=== PATIENT | female | born 1995 | race Caucasian/White ===

== ENCOUNTER 2018-01-10 11:21 | Inpatient (IN) | payer OTHER ==
[2018-01-10 11:41] VITALS: BMI 34.2
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
[2018-01-10] MEDS ORDERED: MAG HYDROX/AL HYDROX/SIMETH 30 ML UNIT-DOSE CUP PO PRN (12:31)
[2018-01-10] MEDS ORDERED: MENTHOL/PHENOL 1 EACH UD MM PRN (12:31)
[2018-01-10] MEDS ORDERED: ACETAMINOPHEN 325 MG TABLET (FP) PO PRN (12:31)
[2018-01-10] MEDS ORDERED: MAGNESIUM CITRATE 300 ML BOTTLE PO PRN (12:31)
[2018-01-10] MEDS ORDERED: P-EPHED 60MG/TRIPROLIDI 2.5MG TABLET PO PRN (12:31)
[2018-01-10] MEDS ORDERED: guaiFENesin/D-METHORPHAN HB 10 ML UNIT-DOSE CUPS PO PRN (12:31)
[2018-01-10] MEDS ORDERED: IBUPROFEN 400 MG TABLET (FP) PO PRN (12:31)
[2018-01-10] MEDS ORDERED: MAGNESIUM HYDROX 2400MG/30ML ORAL SUSPENSION 30 ML CUP PO PRN (12:31)
[2018-01-10] MEDS ORDERED: LOPERAMIDE HCL 2 MG CAPSULE PO PRN (12:31)
[2018-01-10] MEDS ORDERED: METHADONE HCL 10 MG TABLET (FOR DETOX USE ONLY) PO ONE ×2 (13:45→23:00)
[2018-01-10] MEDS: CYCLOBENZAPRINE HCL 10 MG TABLET (FP) PO PRN ×2 (17:07→22:20)
[2018-01-10] MEDS: diazePAM 5 MG TABLET PO PRN ×2 (17:08→22:20)
[2018-01-10] MEDS: THIAMINE HCL 100 MG TABLET (FP) PO SCH (22:20)
[2018-01-10] MEDS: MELATONIN 5 MG TABLETS PO PRN (22:21)
[2018-01-11] MEDS ORDERED: METHADONE HCL 10 MG TABLET (FOR DETOX USE ONLY) PO ONE (10:00)
[2018-01-11 10:20] LABS: HEMATOCRIT 41.2 % (32.4-45.2); HEMOGLOBIN 14.1 GM/dL (10.7-15.3); MCH 29.9 pg (25.7-33.7); MCHC 34.3 g/dl (32.0-36.0); MEAN CELL VOLUME 87.2 fl (80-96); MEAN PLT VOLUME 8.5 fl (7.5-11.1); PLATELET COUNT 373 K/MM3 (134-434); RBC 4.72 M/mm3 (3.60-5.2); RDW 12.6 % (11.6-15.6); WHITE BLOOD COUNT 8.9 K/mm3 (4.0-10.0)
[2018-01-11 10:25] LABS: ALBUMIN 3.7 g/dl (3.4-5.0); ALK PHOS 75 U/L (45-117); ANION GAP 9 MMOL/L (8-16); BILIRUBIN,TOTAL 0.3 mg/dL (0.2-1); BLOOD UREA NITROGEN 13 mg/dL (7-18); CALCIUM 9.6 mg/dL (8.5-10.1); CHLORIDE 108 mmol/L (98-107); CO2 26 mmol/L (21-32); CREATININE 0.7 mg/dL (0.55-1.3); GLUCOSE,RANDOM 89 mg/dL (74-106); POTASSIUM 4.1 mmol/L (3.5-5.1); SGOT/AST 10 U/L (15-37); SGPT/ALT 13 U/L (13-61); SODIUM 143 mmol/L (136-145); TOT PROT 7.6 g/dl (6.4-8.2)
[2018-01-11] MEDS: PRENATAL VITAMINS W/ FOLIC ACID TABLET (FP) PO SCH (10:36)
--- NOTE | 2018-01-11 12:26 | EKG ---
Test Reason : Blood Pressure : / mmHG Vent. Rate : 061 BPM Atrial Rate : 061 BPM P-R Int : 124 ms QRS Dur : 084 ms QT Int : 414 ms P-R-T Axes : 020 001 -13 degrees QTc Int : 416 ms SINUS RHYTHM WITH OCCASIONAL PREMATURE VENTRICULAR COMPLEXES T WAVE ABNORMALITY, CONSIDER INFERIOR ISCHEMIA ABNORMAL ECG NO PREVIOUS ECGS AVAILABLE Confirmed by MALGORZATA STUBBS MD ([id number]) on 01/11/2018 12:26:15 PM Referred By: Confirmed By:MALGORZATA STUBBS MD
--- NOTE | 2018-01-11 14:26 | PN ---
BHS COWS - Scale Resting Pulse: 0= [place] 80 or Below Sweatin= Chills/Flushing Restless Observation: 0= Sits Still Pupil Size: 0= Normal to Room Light Bone or Joint Aches: 2= Severe Diffuse Aches Runny Nose/ Eye Tearin= None GI Upset > 30mins: 0= None Tremor Observation of Outstretched Hands: 0= None Yawning Observation: 2= >3x During Session Anxiety or Irritability: 0= None Goose Flesh Skin: 3=Piloerection COWS Score: 8 BHS Progress Note (SOAP) Subjective: PATIENT C/O BODY ACHES, INTERRUPTED SLEEP AND CHILLS. Objective: 01/11/18 14:25 Laboratory Tests 01/11/18 01/11/18 01/11/18 06:00 06:00 06:00 WBC 8.9 RBC 4.72 Hgb 14.1 Hct 41.2 MCV 87.2 MCH 29.9 MCHC 34.3 RDW 12.6 Plt Count 373 MPV 8.5 Sodium 143 Potassium 4.1 Chloride 108 H Carbon Dioxide 26 Anion Gap 9 BUN 13 Creatinine 0.7 Creat Clearance w eGFR > 60 Random Glucose 89 Calcium 9.6 Total Bilirubin 0.3 AST 10 L ALT 13 Alkaline Phosphatase 75 Total Protein 7.6 Albumin 3.7 RPR Titer Nonreactive Vital Signs Temperature 98.1 F 01/11/18 14:10 Pulse Rate 78 01/11/18 14:10 Respiratory Rate 18 01/11/18 14:10 Blood Pressure 115/57 L 01/11/18 14:10 O2 Sat by Pulse Oximetry (%) PE: SKIN + GOOSEFLESH ALERT AND ORIENTED X 3 AMB AD RAJAT EXT FULL ROM Assessment: 01/11/18 14:26 WITHDRAWAL SX Plan: CONTINUE DETOX ORDERED ENCOURAGE ORAL FLUIDS CONTINUE TO MONITOR CLINICALLY
[2018-01-11 15:18] LABS: URINE APPEARANCE SLCLOUDY; URINE BILIRUBIN NEGATIVE (<2.0 mg/dL); URINE COLOR YELLOW; URINE GLUCOSE (UA) NEGATIVE (NEGATIVE); URINE KETONE NEGATIVE (NEGATIVE); URINE LEUK ESTERASE NEGATIVE (NEGATIVE); URINE NITRITE NEGATIVE (NEGATIVE); URINE PROTEIN NEGATIVE (NEGATIVE); URINE UROBILINOGEN NEGATIVE mg/dL (0.2-1.0)
[2018-01-11] MEDS: CYCLOBENZAPRINE HCL 10 MG TABLET (FP) PO PRN (22:33)
[2018-01-11] MEDS: MELATONIN 5 MG TABLETS PO PRN (22:34)
[2018-01-11] MEDS: THIAMINE HCL 100 MG TABLET (FP) PO SCH (22:34)
[2018-01-12] MEDS ORDERED: METHADONE HCL 5 MG TABLET (FOR DETOX USE ONLY) PO ONE (10:00)
[2018-01-12] MEDS: PRENATAL VITAMINS W/ FOLIC ACID TABLET (FP) PO SCH (10:42)
--- NOTE | 2018-01-12 13:27 | PN ---
BHS COWS - Scale Resting Pulse: 0= [place] 80 or Below Sweatin= Chills/Flushing Restless Observation: 1= Difficult to Sit Still Pupil Size: 1= Pupils >than Normal Bone or Joint Aches: 1= Mild Discomfort Runny Nose/ Eye Tearin= Nasal Congestion GI Upset > 30mins: 1= Stomach Cramp Tremor Observation of Outstretched Hands: 1= Tremor [place], Not Seen Yawning Observation: 1= 1-2x During Session Anxiety or Irritability: 1=Feels Anxious/Irritable Goose Flesh Skin: 0=Smooth Skin COWS Score: 9 BHS Progress Note (SOAP) Subjective: body ache joints pain sweat tremor trouble sleep at night Objective: 01/12/18 13:26 Vital Signs Temperature 98.1 F 01/12/18 09:43 Pulse Rate 56 L 01/12/18 09:43 Respiratory Rate 16 01/12/18 09:43 Blood Pressure 98/50 L 01/12/18 09:43 O2 Sat by Pulse Oximetry (%) Laboratory Last Values WBC 8.9 K/mm3 (4.0-10.0) 01/11/18 06:00 RBC 4.72 M/mm3 (3.60-5.2) 01/11/18 06:00 Hgb 14.1 GM/dL (10.7-15.3) 01/11/18 06:00 Hct 41.2 % (32.4-45.2) 01/11/18 06:00 MCV 87.2 fl (80-96) 01/11/18 06:00 MCH 29.9 pg (25.7-33.7) 01/11/18 06:00 MCHC 34.3 g/dl (32.0-36.0) 01/11/18 06:00 RDW 12.6 % (11.6-15.6) 01/11/18 06:00 Plt Count 373 K/MM3 (134-434) 01/11/18 06:00 MPV 8.5 fl (7.5-11.1) 01/11/18 06:00 Sodium 143 mmol/L (136-145) 01/11/18 06:00 Potassium 4.1 mmol/L (3.5-5.1) 01/11/18 06:00 Chloride 108 mmol/L (98-107) H 01/11/18 06:00 Carbon Dioxide 26 mmol/L (21-32) 01/11/18 06:00 Anion Gap 9 MMOL/L (8-16) 01/11/18 06:00 BUN 13 mg/dL (7-18) 01/11/18 06:00 Creatinine 0.7 mg/dL (0.55-1.3) 01/11/18 06:00 Creat Clearance w eGFR > 60 (>60) 01/11/18 06:00 Random Glucose 89 mg/dL (74-106) 01/11/18 06:00 Calcium 9.6 mg/dL (8.5-10.1) 01/11/18 06:00 Total Bilirubin 0.3 mg/dL (0.2-1) 01/11/18 06:00 AST 10 U/L (15-37) L 01/11/18 06:00 ALT 13 U/L (13-61) 01/11/18 06:00 Alkaline Phosphatase 75 U/L (45-117) 01/11/18 06:00 Total Protein 7.6 g/dl (6.4-8.2) 01/11/18 06:00 Albumin 3.7 g/dl (3.4-5.0) 01/11/18 06:00 Urine Color Yellow 01/11/18 09:15 Urine Appearance Slcloudy 01/11/18 09:15 Urine pH 5.0 (5.0-8.0) 01/11/18 09:15 Ur Specific [place] 1.024 (1.010-1.035) 01/11/18 09:15 Urine Protein Negative (NEGATIVE) 01/11/18 09:15 Urine Glucose (UA) Negative (NEGATIVE) 01/11/18 09:15 Urine Ketones Negative (NEGATIVE) 01/11/18 09:15 Urine Blood Negative (NEGATIVE) 01/11/18 09:15 Urine Nitrite Negative (NEGATIVE) 01/11/18 09:15 Urine Bilirubin Negative (<2.0 mg/dL) 01/11/18 09:15 Urine Urobilinogen Negative mg/dL (0.2-1.0) 01/11/18 09:15 Ur Leukocyte Esterase Negative (NEGATIVE) 01/11/18 09:15 RPR Titer Nonreactive (NONREACTIVE) 01/11/18 06:00 lab noted Assessment: 01/12/18 13:27 withdrawal sx Plan: continue detox
[2018-01-12] MEDS: hydrOXYzine PAMOATE 50 MG CAPSULE (FP) PO PRN (14:13)
[2018-01-12] MEDS: diazePAM 5 MG TABLET PO PRN (21:05)
[2018-01-12] MEDS: THIAMINE HCL 100 MG TABLET (FP) PO SCH (22:08)
[2018-01-12] MEDS: MELATONIN 5 MG TABLETS PO PRN (22:09)
[2018-01-13] MEDS ORDERED: METHADONE HCL 5 MG TABLET (FOR DETOX USE ONLY) PO ONE (10:00)
[2018-01-13] MEDS: PRENATAL VITAMINS W/ FOLIC ACID TABLET (FP) PO SCH (10:39)
[2018-01-13] MEDS: CYCLOBENZAPRINE HCL 10 MG TABLET (FP) PO PRN ×2 (10:39→22:18)
[2018-01-13] MEDS: diazePAM 5 MG TABLET PO PRN (10:39)
--- NOTE | 2018-01-13 16:03 | PN ---
BHS Progress Note (SOAP) Subjective: sweat tremor body aches joints pain trouble sleep at night Objective: 01/13/18 16:02 Vital Signs Temperature 99.0 F 01/13/18 13:12 Pulse Rate 114 H 01/13/18 13:12 Respiratory Rate 18 01/13/18 13:12 Blood Pressure 126/84 01/13/18 13:12 O2 Sat by Pulse Oximetry (%) Laboratory Last Values WBC 8.9 K/mm3 (4.0-10.0) 01/11/18 06:00 RBC 4.72 M/mm3 (3.60-5.2) 01/11/18 06:00 Hgb 14.1 GM/dL (10.7-15.3) 01/11/18 06:00 Hct 41.2 % (32.4-45.2) 01/11/18 06:00 MCV 87.2 fl (80-96) 01/11/18 06:00 MCH 29.9 pg (25.7-33.7) 01/11/18 06:00 MCHC 34.3 g/dl (32.0-36.0) 01/11/18 06:00 RDW 12.6 % (11.6-15.6) 01/11/18 06:00 Plt Count 373 K/MM3 (134-434) 01/11/18 06:00 MPV 8.5 fl (7.5-11.1) 01/11/18 06:00 Sodium 143 mmol/L (136-145) 01/11/18 06:00 Potassium 4.1 mmol/L (3.5-5.1) 01/11/18 06:00 Chloride 108 mmol/L (98-107) H 01/11/18 06:00 Carbon Dioxide 26 mmol/L (21-32) 01/11/18 06:00 Anion Gap 9 MMOL/L (8-16) 01/11/18 06:00 BUN 13 mg/dL (7-18) 01/11/18 06:00 Creatinine 0.7 mg/dL (0.55-1.3) 01/11/18 06:00 Creat Clearance w eGFR > 60 (>60) 01/11/18 06:00 Random Glucose 89 mg/dL (74-106) 01/11/18 06:00 Calcium 9.6 mg/dL (8.5-10.1) 01/11/18 06:00 Total Bilirubin 0.3 mg/dL (0.2-1) 01/11/18 06:00 AST 10 U/L (15-37) L 01/11/18 06:00 ALT 13 U/L (13-61) 01/11/18 06:00 Alkaline Phosphatase 75 U/L (45-117) 01/11/18 06:00 Total Protein 7.6 g/dl (6.4-8.2) 01/11/18 06:00 Albumin 3.7 g/dl (3.4-5.0) 01/11/18 06:00 Urine Color Yellow 01/11/18 09:15 Urine Appearance Slcloudy 01/11/18 09:15 Urine pH 5.0 (5.0-8.0) 01/11/18 09:15 Ur Specific [place] 1.024 (1.010-1.035) 01/11/18 09:15 Urine Protein Negative (NEGATIVE) 01/11/18 09:15 Urine Glucose (UA) Negative (NEGATIVE) 01/11/18 09:15 Urine Ketones Negative (NEGATIVE) 01/11/18 09:15 Urine Blood Negative (NEGATIVE) 01/11/18 09:15 Urine Nitrite Negative (NEGATIVE) 01/11/18 09:15 Urine Bilirubin Negative (<2.0 mg/dL) 01/11/18 09:15 Urine Urobilinogen Negative mg/dL (0.2-1.0) 01/11/18 09:15 Ur Leukocyte Esterase Negative (NEGATIVE) 01/11/18 09:15 RPR Titer Nonreactive (NONREACTIVE) 01/11/18 06:00 lab noted Assessment: 01/13/18 16:02 withdrawal sx Plan: continue detox
[2018-01-13] MEDS: hydrOXYzine PAMOATE 50 MG CAPSULE (FP) PO PRN (20:53)
[2018-01-13] MEDS: THIAMINE HCL 100 MG TABLET (FP) PO SCH (22:17)
[2018-01-13] MEDS: MELATONIN 5 MG TABLETS PO PRN (22:18)
[2018-01-14] MEDS ORDERED: METHADONE HCL 10 MG TABLET (FOR DETOX USE ONLY) PO ONE (10:00)
[2018-01-14] MEDS: PRENATAL VITAMINS W/ FOLIC ACID TABLET (FP) PO SCH (10:48)
--- NOTE | 2018-01-14 11:36 | PN ---
BHS Progress Note (SOAP) Subjective: irritable agitation Objective: 01/14/18 11:35 Vital Signs Temperature 98.2 F 01/14/18 09:53 Pulse Rate 77 01/14/18 09:53 Respiratory Rate 18 01/14/18 09:53 Blood Pressure 113/69 01/14/18 09:53 O2 Sat by Pulse Oximetry (%) aaox3 ambulating no acute distress Assessment: 01/14/18 11:35 mild withdrawal sx Plan: continue detox increase fluids d/c in am
[2018-01-14] MEDS: THIAMINE HCL 100 MG TABLET (FP) PO SCH (22:41)
[2018-01-14] MEDS: CYCLOBENZAPRINE HCL 10 MG TABLET (FP) PO PRN (22:41)
[2018-01-14] MEDS: MELATONIN 5 MG TABLETS PO PRN (22:42)
[2018-01-14] MEDS: hydrOXYzine PAMOATE 50 MG CAPSULE (FP) PO PRN (22:42)
[2018-01-15] MEDS ORDERED: METHADONE HCL 5 MG TABLET (FOR DETOX USE ONLY) PO ONE (06:00)
[2018-01-15 08:14] VITALS: BP 118/68; PULSE 61; TEMP 97.7
--- NOTE | 2018-01-15 16:35 | DS ---
[facility] Detox Discharge Summary Admission Date: 01/10/18 Discharge Date: 01/15/18 - History Present History: Opioid Dependence Additional Comments: 22 years old female admitted on 01/10/18 with opiate withdrawal sx completed opiate detox regimen tolerate well denies opiate withdrawal sx alert oriented s 3 no acute distress aftercare create rehab - Physical Exam Results Vital Signs: Vital Signs Temperature 97.7 F 01/15/18 08:13 Pulse Rate 61 01/15/18 08:13 Respiratory Rate 18 01/15/18 08:13 Blood Pressure 118/68 01/15/18 08:13 O2 Sat by Pulse Oximetry (%) Pertinent Admission Physical Exam Findings: opiate withdrawal sx Vital Signs Temperature 97.7 F 01/15/18 08:13 Pulse Rate 61 01/15/18 08:13 Respiratory Rate 18 01/15/18 08:13 Blood Pressure 118/68 01/15/18 08:13 O2 Sat by Pulse Oximetry (%) Laboratory Last Values WBC 8.9 K/mm3 (4.0-10.0) 01/11/18 06:00 RBC 4.72 M/mm3 (3.60-5.2) 01/11/18 06:00 Hgb 14.1 GM/dL (10.7-15.3) 01/11/18 06:00 Hct 41.2 % (32.4-45.2) 01/11/18 06:00 MCV 87.2 fl (80-96) 01/11/18 06:00 MCH 29.9 pg (25.7-33.7) 01/11/18 06:00 MCHC 34.3 g/dl (32.0-36.0) 01/11/18 06:00 RDW 12.6 % (11.6-15.6) 01/11/18 06:00 Plt Count 373 K/MM3 (134-434) 01/11/18 06:00 MPV 8.5 fl (7.5-11.1) 01/11/18 06:00 Sodium 143 mmol/L (136-145) 01/11/18 06:00 Potassium 4.1 mmol/L (3.5-5.1) 01/11/18 06:00 Chloride 108 mmol/L (98-107) H 01/11/18 06:00 Carbon Dioxide 26 mmol/L (21-32) 01/11/18 06:00 Anion Gap 9 MMOL/L (8-16) 01/11/18 06:00 BUN 13 mg/dL (7-18) 01/11/18 06:00 Creatinine 0.7 mg/dL (0.55-1.3) 01/11/18 06:00 Creat Clearance w eGFR > 60 (>60) 01/11/18 06:00 Random Glucose 89 mg/dL (74-106) 01/11/18 06:00 Calcium 9.6 mg/dL (8.5-10.1) 01/11/18 06:00 Total Bilirubin 0.3 mg/dL (0.2-1) 01/11/18 06:00 AST 10 U/L (15-37) L 01/11/18 06:00 ALT 13 U/L (13-61) 01/11/18 06:00 Alkaline Phosphatase 75 U/L (45-117) 01/11/18 06:00 Total Protein 7.6 g/dl (6.4-8.2) 01/11/18 06:00 Albumin 3.7 g/dl (3.4-5.0) 01/11/18 06:00 Urine Color Yellow 01/11/18 09:15 Urine Appearance Slcloudy 01/11/18 09:15 Urine pH 5.0 (5.0-8.0) 01/11/18 09:15 Ur Specific [place] 1.024 (1.010-1.035) 01/11/18 09:15 Urine Protein Negative (NEGATIVE) 01/11/18 09:15 Urine Glucose (UA) Negative (NEGATIVE) 01/11/18 09:15 Urine Ketones Negative (NEGATIVE) 01/11/18 09:15 Urine Blood Negative (NEGATIVE) 01/11/18 09:15 Urine Nitrite Negative (NEGATIVE) 01/11/18 09:15 Urine Bilirubin Negative (<2.0 mg/dL) 01/11/18 09:15 Urine Urobilinogen Negative mg/dL (0.2-1.0) 01/11/18 09:15 Ur Leukocyte Esterase Negative (NEGATIVE) 01/11/18 09:15 RPR Titer Nonreactive (NONREACTIVE) 01/11/18 06:00 lab noted - Treatment Hospital Course: Detox Protocol Followed, Detoxed Safely, Responded well, Discharged Condition Good, Rehab Referral Accepted Patient has Accepted a Rehab Referral to: create - Medication Discharge Medications: Ambulatory Orders NK [No Known Home Medication] 01/10/18 - Diagnosis (1) Nicotine dependence Status: Acute Qualifiers: Nicotine product type: cigarettes Substance use status: in withdrawal Qualified Code(s): F17.213 - Nicotine dependence, cigarettes, with withdrawal (2) Opioid dependence with withdrawal Status: Acute - AMA Did Patient Leave Against Medical Advice: No
== END 2018-01-15 09:22 | disposition home or self-care (01) | DRG 773 ==
LOC: YASAS 11:21 → Y6N 13:09
PROC: HZ2ZZZZ Detoxification Services for Substance Abuse Treatment (ICD-10-PCS; principal; 2018-01-09)
DX: F11.23 Opioid dependence with withdrawal (principal); F17.213 Nicotine dependence, cigarettes, with withdrawal; S89.92XD Unspecified injury of left lower leg, subsequent encounter; S49.92XD Unspecified injury of left shoulder and upper arm, subsequent encounter; V49.9XXD Car occupant (driver) (passenger) injured in unspecified traffic accident, subsequent encounter
CPT/HCPCS: 36415; 80053; 81003; 85027; 86593; 93005; 93010